=== PATIENT | female | born 1970 | race Native Hawaiian/Other Pacific Islander ===

== ENCOUNTER 2016-12-30 06:32 | Day surgery (SDC) | payer OTHER ==
[2016-12-30] MEDS ORDERED: Propofol 10 mg/ml Inj (20 ML) ONE (07:30)
[2016-12-30] MEDS ORDERED: Midazolam 2 MG/2 ML VIAL ONE (07:30)
[2016-12-30] MEDS ORDERED: Lactated Ringer's 1,000 ML IV ONE (07:33)
[2016-12-30] MEDS ORDERED: ceFAZolin IV 1 gm in Dextrose 1 GM/50 ML BAG IVPB ONE (07:57)
[2016-12-30] MEDS ORDERED: HYDROmorphone 0.5 mg/0.5 ml ISec IVP PRN (08:02)
--- NOTE | 2016-12-30 08:29 | PCM.SURG1 ---
Surgeon's Initial Post Op Note - Surgeon's Notes Surgeon: dr alvarado Account Retention Representative: none Type of Anesthesia: General LMA Anesthesia Administered By: dr marcelo Pre-Operative Diagnosis: 46 yr with AUB R/o polyp Operative Findings: see the op reort Post-Operative Diagnosis: same with polyp Operation Performed: myasure/d &c, hysterscopy Specimen/Specimens Removed: ecc. emc. polyp Estimated Blood Loss: EBL {In ML}: 20 Blood Products Given: N/A Drains Used: No Drains Post-Op Condition: Good Date of Surgery/Procedure: 12/30/16 Time of Surgery/Procedure: 10:00
[2016-12-30 10:18] VITALS: BP 131/76; PULSE 70; RESP 18; TEMP 98; O2SAT 98
--- NOTE | 2016-12-31 07:04 | OP ---
PROCEDURE DATE: PREOPERATIVE DIAGNOSIS: A 46-year-old 2, para 2 with abnormal uterine bleeding, rule out polyp. POSTOPERATIVE DIAGNOSIS: A 46-year-old, 2, para 2 with abnormal uterine bleeding, rule out polyp. SURGEON: Dr. Jonathon Vicente. [employer] RESEARCH TECHNICIAN SURGEON: None. ANESTHESIA: General anesthesia. ANESTHESIOLOGIST: . PROCEDURE PERFORMED: D AND C, cystoscopy, Myosure. ESTIMATED BLOOD LOSS: 20 mL DEFICIT: 200 mL. COMPLICATIONS: None. DESCRIPTION OF PROCEDURE: After informed consent was obtained, the patient was brought to the operating room, placed on the table where general anesthesia was given. When anesthesia was found to be sufficient, the patient was prepped and draped in normal sterile fashion. Examination under anesthesia found the uterus to be 8-week size. No pelvic or adnexal masses. Anterior lip of the cervix was grasped with a tenaculum. Gentle dilatation of the cervix was done. After that, hysteroscope was introduced and found to be polyp on the anterior wall of the uterus about 2 cm. Pictures were taken and the decision was to use MyoSure. Myosure was used to remove the polyp. After that, pictures were taken again. Then, sharp curettage on all the carson of the uterus was done. Moderate amount of tissue from . ECC was done, it was sent to the pathology too. After that, the tenaculum was removed. There was no bleeding. The patient tolerated the procedure well. Lap, sponge, and instrument counts were correct x2. She will follow up in the office in 2 weeks. No sex for 2 weeks. Pain medication and antibiotics. Jonathon Vicente MD
== END 2016-12-30 10:40 | disposition home or self-care (01) ==
LOC: C.SDS 06:32
PROVIDERS: ATTEND Obstetrics & Gynecology
DX: N84.0 Polyp of corpus uteri (principal); N93.9 Abnormal uterine and vaginal bleeding, unspecified; I10 Essential (primary) hypertension
CPT/HCPCS: 58558; 88305; J0690; J1170; J1885; J2001; J2250; J2405; J2704; J3010; J7120